=== PATIENT | female | born 1980 | race Caucasian/White ===

== ENCOUNTER 2020-05-11 00:36 | Emergency (ER) | payer SELFPAY ==
[~2020-05-11] VITALS: Ht 149.9 cm; Wt 61.2 kg
--- NOTE | 2020-05-11 01:00 | NUR ---
patient walked in from home for right hand swollen, she states she cut her finger on friday morning while moving things around in the garage. right ring finger noted to be swollen and red. denies nausea/vomiting.
[2020-05-11] MEDS ORDERED: SULFAMETH/TRIMETH 800/160 MG TABLET PO ONE (01:45)
[2020-05-11] MEDS ORDERED: CEphaleXIN 500 MG CAPSULE PO ONE (01:45)
[2020-05-11] MEDS ORDERED: HYDR-4209 PO (01:51)
[2020-05-11] MEDS ORDERED: NEOMY/BACITRA/POLYMYXIN B OINT UD PACKET TP ONE ×2 (01:52→02:00)
[2020-05-11] MEDS ORDERED: CEphaleXIN 500 MG CAPSULE ONE (01:52)
[2020-05-11] MEDS ORDERED: SULFAMETH/TRIMETH 800/160 MG TABLET ONE (01:52)
--- NOTE | 2020-05-11 01:58 | NUR ---
dressed right hand with kerlix and triple antibiotic ointment per Dr. Mosquera.
--- NOTE | 2020-05-11 01:58 | NUR ---
Patient discharged to home in stable condition. Written and verbal after care instructions given. Patient verbalizes understanding of instructions. Stressed follow up or return to ER for worsening s/s. patient to return on satruday, patient verbalized understanding.
[2020-05-11] MEDS ORDERED: HYDROCODONE/APAP 5-325MG TABLET PO ONE (02:00)
[2020-05-11] MEDS ORDERED: IBUPROFEN 800 MG TABLET PO ONE (02:00)
[2020-05-11] MEDS ORDERED: IBUPROFEN 800 MG TABLET ONE (02:07)
[2020-05-11] MEDS ORDERED: HYDROCODONE/APAP 5-325MG TABLET ONE (02:07)
[2020-05-11 02:24] VITALS: BP 108/79
[2020-05-11] MEDS ORDERED: SULF1TAB48 PO (19:28)
[2020-05-11] MEDS ORDERED: CEPH-570 PO (19:28)
== END 2020-05-11 02:25 | disposition home or self-care (01) ==
LOC: ER 00:44
DX: S69.91XS Unspecified injury of right wrist, hand and finger(s), sequela (principal); W22.8XXS Striking against or struck by other objects, sequela; L03.113 Cellulitis of right upper limb
CPT/HCPCS: A4663

== ENCOUNTER 2020-05-11 19:19 | Emergency (ER) | payer SELFPAY ==
[~2020-05-11] VITALS: Ht 149.9 cm; Wt 65.3 kg
[~2020-05-11 19:19] MED LIST: HYDR-4209 PO
[2020-05-11] MEDS ORDERED: SULF1TAB48 PO (19:28)
[2020-05-11] MEDS ORDERED: CEPH-570 PO (19:28)
--- NOTE | 2020-05-11 19:39 | NUR ---
Patient walked into ER c/o right index finger swelling and pain. Was seen here earlier this AM and was I/D. Came back for worsening pain and swelling.
[2020-05-11] MEDS: HYDROMORPHONE 1 MG/1 ML DISP.SYRIN IM ONE ×2 (19:43→19:44)
[2020-05-11] MEDS ORDERED: ONDANSETRON 4 MG/2 ML VIAL ONE (19:44)
[2020-05-11] MEDS ORDERED: HYDROMORPHONE 2 MG/1 ML DISP.SYRIN ONE (19:44)
[2020-05-11] MEDS ORDERED: LIDOCAINE HCL 2% 20 ML VIAL TP ONE (19:45)
[2020-05-11] MEDS ORDERED: ONDANSETRON 4 MG/2 ML VIAL IM ONE (19:45)
--- NOTE | 2020-05-11 20:31 | NUR ---
Patient discharged to home in stable condition with family taking patient home. Written and verbal after care instructions given. Patient verbalizes understanding of instructions. Stressed follow up or return to ER for worsening s/s.
[2020-05-11 20:32] VITALS: BP 116/76
== END 2020-05-11 20:32 | disposition home or self-care (01) ==
LOC: ER 19:33
DX: L02.511 Cutaneous abscess of right hand (principal)
CPT/HCPCS: 10060; 96372 ×2; 99284; J1170; J2405; J3490; A4663

== ENCOUNTER 2020-05-14 12:55 | Emergency (ER) | payer SELFPAY ==
[~2020-05-14] VITALS: Ht 149.9 cm; Wt 63.5 kg
[~2020-05-14 12:55] MED LIST changes: +CEPH-570 PO; -HYDR-4209 PO; +SULF1TAB48 PO
--- NOTE | 2020-05-14 13:30 | NUR ---
Patient had I/D 2 days ago on right index finger. Came in for eval. Patient states swelling/pain has reduce. Dressing removed with packing.
--- NOTE | 2020-05-14 13:48 | NUR ---
Re apply dressing on right index finger.
--- NOTE | 2020-05-14 13:49 | NUR ---
Patient discharged to home in stable condition. Written and verbal after care instructions given. Patient verbalizes understanding of instructions. Stressed follow up or return to ER for worsening s/s.
== END 2020-05-14 13:52 | disposition home or self-care (01) ==
LOC: ER 12:55
DX: Z48.817 Encounter for surgical aftercare following surgery on the skin and subcutaneous tissue (principal); L02.512 Cutaneous abscess of left hand
CPT/HCPCS: A4663

== ENCOUNTER 2020-08-07 00:47 | Emergency (ER) | payer SELFPAY ==
[~2020-08-07] VITALS: Ht 149.9 cm; Wt 61.2 kg
--- NOTE | 2020-08-07 00:55 | NUR ---
Dr. Carranza at bedside for MSE.
[2020-08-07] MEDS ORDERED: MUPIROCIN 2% OINT 22 GM TUBE TP ONE (01:00)
[2020-08-07] MEDS ORDERED: SULFAMETH/TRIMETH 800/160 MG TABLET PO ONE (01:00)
[2020-08-07] MEDS ORDERED: SULF1TAB48 PO (01:01)
[2020-08-07] MEDS ORDERED: MUPI22OI2 (01:02)
[2020-08-07] MEDS ORDERED: BACITRACIN ZINC OINT 15 GM TUBE ONE (01:09)
[2020-08-07] MEDS ORDERED: SULFAMETH/TRIMETH 800/160 MG TABLET ONE (01:10)
--- NOTE | 2020-08-07 01:10 | NUR ---
Patient discharged to home in stable condition. Written and verbal after care instructions given. Patient verbalizes understanding of instructions. Stressed follow up or return to ER for worsening s/s. Patient out of ER with steady gait, no acute signs of distress, VSS, all belongings taken, instructed not to drive.
[2020-08-07 01:12] VITALS: BP 119/72
[2020-08-07] MEDS ORDERED: HYDROCODONE/APAP 10-325 MG TABLET ONE (01:14)
[2020-08-07] MEDS ORDERED: HYDROCODONE/APAP 10-325 MG TABLET PO ONE (01:15)
== END 2020-08-07 01:13 | disposition home or self-care (01) ==
LOC: ER 00:51
DX: L02.811 Cutaneous abscess of head [any part, except face] (principal)
CPT/HCPCS: A4663